=== PATIENT | female | born 1965 | race Caucasian/White ===

== ENCOUNTER → 2021-06-06 | Outpatient (CLI) | payer BC ==
[~2021-06-06] MED LIST: CITA20; IBUP600
== END | disposition home or self-care (01) ==
LOC: LAB SHORT 11:04 → LAB 11:04
DX: D22.62 Melanocytic nevi of left upper limb, including shoulder (principal); D22.71 Melanocytic nevi of right lower limb, including hip
CPT/HCPCS: 88305